=== PATIENT | female | born 1965 | race African-American/Black ===

== ENCOUNTER 2024-09-09 07:34 | Emergency (ER) | payer OTHER ==
[2024-09-09] MEDS ORDERED: Acetaminophen 500 MG TAB ONE (08:32)
[2024-09-09] MEDS ORDERED: Lidocaine 4% Patch ONE (08:32)
== END 2024-09-09 10:11 | disposition home or self-care (01) ==
LOC: ERS 07:34
DX: T14.8XXA Other injury of unspecified body region, initial encounter (principal); M54.50 Low back pain, unspecified; E11.9 Type 2 diabetes mellitus without complications; Z79.84 Long term (current) use of oral hypoglycemic drugs; V89.2XXA Person injured in unspecified motor-vehicle accident, traffic, initial encounter
CPT/HCPCS: 72100; 99284